=== PATIENT | male | born 1995 | race Two or more races ===

== ENCOUNTER 2017-07-10 00:02 | Emergency (ER) | payer OTHER ==
[2017-07-10] MEDS ORDERED: predniSONE TAB* 20 MG PO ONE (00:35)
[2017-07-10 01:12] VITALS: BP 137/72
--- NOTE | 2017-07-10 01:15 | ED ---
Ignacio Huston Tecjoon, scribed for Isaac Ga MD on 07/10/17 at 0037 . Skin Complaint - HPI Summary HPI Summary: This patient is a 21 year old male presenting to [facility] accompanied by friend with a chief complaint of skin rash since 2 days ago. Patient states that he noticed a red, lightly raised rash all over his body since Tuesday afternoon. He describes the rash as warm and not itchy. Patient states there is no pain. Symptoms aggravated by nothing. Symptoms alleviated by nothing. The patient treated the rash with Benadryl, but it didnt help. Patient additionally reports nasal congestion. Patient denies fever, cough. - History of Current Complaint Chief Complaint: EDRashSkinAbscess Time Seen by Provider: 07/10/17 00:29 Stated Complaint: RASH ALL OVER Hx Obtained From: Patient Onset/Duration: Started Days Ago - 2, Still Present Timing: Constant Current Severity: Mild Pain Intensity: 0 Pain Scale Used: 0-10 Numeric Skin Location: Diffuse Character: Redness, Raised Aggravating Symptom(s): Nothing Alleviating Symptom(s): Nothing Associated Signs & Symptoms: Negative - fever, cough - Allergy/Home Medications Allergies/Adverse Reactions: Allergies Allergy/AdvReac Type Severity Reaction Status Date / Time Cephalosporins Allergy Unknown Verified 03/27/16 01:58 Reaction Details Penicillins Allergy Unknown Verified 03/27/16 01:58 Reaction Details PMH/Surg Hx/FS Hx/Imm Hx Previously Healthy: Yes Opthamlomology History: Denies: Hx Legally Blind EENT History: Denies: Hx Deafness - Immunization History Date of Tetanus Vaccine: utd Date of Influenza Vaccine: none Infectious Disease History: No Infectious Disease History: Denies: Traveled Outside the [place] in Last 30 Days - Family History Known Family History: Negative: Hypertension - Social History Occupation: Student Lives: Dormitory/Roommates Alcohol Use: Occasionally Hx Substance Use: No Substance Use Type: Reports: None Hx Tobacco Use: No Smoking Status (MU): Never Smoked Tobacco Review of Systems Negative: Fever Positive: Other - nasal congestion Negative: Cough Positive: Rash All Other Systems Reviewed And Are Negative: Yes Physical Exam - Summary Physical Exam Summary: Appearance: Well appearing, no pain distress Skin: warm, dry. red speckled rash diffusely without itching or warmth Head/face: normal Eyes: EOMI, [place]O ENT: normal Neck: supple, non-tender Respiratory: CTA, breath sounds present Cardiovascular: RRR, pulses symmetrical Abdomen: non-tender, soft Bowel: present Musculoskeletal: normal, strength/ROM intact Neuro: normal, sensory motor intact, A&Ox3 Triage Information Reviewed: Yes Vital Signs On Initial Exam: Initial Vitals Temp Pulse Resp BP Pulse Ox 99.0 F 86 16 150/84 100 07/10/17 00:05 07/10/17 00:05 07/10/17 00:05 07/10/17 00:05 07/10/17 00:05 Vital Signs Reviewed: Yes Diagnostics - Vital Signs Vital Signs Temp Pulse Resp BP Pulse Ox 07/10/17 00:05 99.0 F 86 16 150/84 100 - Laboratory Lab Statement: Any lab studies that have been ordered have been reviewed, and results considered in the medical decision making process. Course/Dx - Course Course Of Treatment: pt with cough/cold sx, now gone and a fine speckled erythematous rash. No ithcing. Likely viral. - Differential Diagnoses - Skin Complaint Differential Diagnoses: Allergic Reaction, Drug Rash, Viral Exanthem - Diagnoses Provider Diagnoses: Viral exanthem Discharge - Discharge Plan Condition: Good Disposition: HOME Prescriptions: predniSONE TAB* [Deltasone TAB*] 50 mg PO DAILY #3 tab Patient Education Materials: Exanthem Subitum (ED) Referrals: [facility] [Provider Group] Additional Instructions: Use unscented moisturizer. Return with fever, worse, new symptoms or other concerns as discussed. The documentation as recorded by the Ignacio thurston Tecjoon accurately reflects the service I personally performed and the decisions made by , Isaac Ga MD.
== END 2017-07-10 01:10 | disposition home or self-care (01) ==
LOC: ED 00:02
DX: B09 Unspecified viral infection characterized by skin and mucous membrane lesions (principal); R09.81 Nasal congestion; Z88.1 Allergy status to other antibiotic agents; Z88.0 Allergy status to penicillin
CPT/HCPCS: 99282; J7512